=== PATIENT | female | born 1945 | race Caucasian/White ===

== ENCOUNTER → 2019-05-11 15:24 | Outpatient (CLI) | payer MEDICARE, OTHER, SELFPAY ==
--- NOTE | 2019-05-11 15:30 | DI.MRI.S_ITS ---
PROCEDURE: MR LUMBAR SPINE WO CON INDICATIONS: Radiculopathy, lumbosacral region TECHNIQUE: Noncontrast sagittal T1 spin echo and T2 fast echo, sagittal STIR, axial T1 and T2 fast spin echo through the lumbar spine. In cases with scoliosis, additional coronal T2 fast spin echo may be performed. COMPARISON: None. FINDINGS: Image quality: Excellent. Alignment and Curvature: There is mild levoscoliosis. Grade 1 anterolisthesis at L2-L3 and L3-L4. Bone Marrow: Degenerative endplate signal changes are present. No acute vertebral body compression fractures. Spinal Cord: Conus medullaris terminates at the L1-L2 level. Visualized cord demonstrates normal signal and size. Paraspinous Soft Tissues: No paravertebral masses. T12-L1: Mild loss of disc height and disc desiccation. There is diffuse posterior disc bulge and disc osteophyte complex. Mild bilateral facet arthropathy and hypertrophy of ligamentum flavum. The central canal is mildly narrowed. Mild foraminal stenosis bilaterally. No definitive nerve root impingement. L1-L2: Preserved disc height. Mild disc desiccation. There is diffuse posterior disc bulge and disc osteophyte complex. Moderate bilateral facet arthropathy and hypertrophy of ligamentum flavum. The central canal is mildly narrowed. Moderate right and mild left foraminal stenosis. No definitive nerve root impingement. L2-L3: Mild loss of disc height and disc desiccation. There is diffuse posterior disc bulge and posterior central disc protrusion. Moderate bilateral facet arthropathy and hypertrophy of ligamentum flavum. The central canal is severely narrowed. Moderate right and mild left foraminal stenosis. Likely nerve root impingement. L3-L4: [id number] loss of disc height and disc desiccation. There is diffuse posterior disc bulge and disc osteophyte complex. Moderate bilateral facet arthropathy. The central canal is severely narrowed. Severe right and mild left foraminal stenosis. Likely root impingement. L4-L5: Moderate loss of disc height and disc desiccation. There is diffuse posterior disc bulge and disc osteophyte complex. Moderate left and mild right facet arthropathy. The central canal is patent. Moderate left and mild right foraminal stenosis. No definitive nerve root impingement. L5-S1: Severe loss of disc height and disc desiccation. There is diffuse posterior disc bulge and disc osteophyte complex. Mild bilateral facet arthropathy. The central canal is patent. Moderate to severe bilateral foraminal stenosis. No definitive nerve root impingement. IMPRESSION: 1. Multilevel degenerative disc disease and facet arthropathy as described. 2. Severe central canal stenosis at L2-L3 and L3-L4. 3. Multilevel foraminal stenosis as described. Dictated by: Stevan Corbin M.D. on 05/11/2019 at 17:11 Approved by: Stevan Corbin M.D. on 05/11/2019 at 17:48
== END ==
PROVIDERS: Visit Provider Physical Medicine & Rehabilitation Pain Medicine
DX: M54.17 Radiculopathy, lumbosacral region (principal); M48.061 Spinal stenosis, lumbar region without neurogenic claudication; M47.816 Spondylosis without myelopathy or radiculopathy, lumbar region
CPT/HCPCS: 72148

== ENCOUNTER → 2019-08-25 10:11 | Outpatient (CLI) | payer MEDICARE, OTHER, SELFPAY ==
[2019-08-25 11:20] LABS: Appearance Urine UA CLEAR; Bilirubin Urine UA NEGATIVE (NEGATIVE); Color Urine UA YELLOW; Glucose Urine UA NEGATIVE (Negative); Ketones Urine UA NEGATIVE (NEGATIVE); Leukocyte Esterase Urine UA TRACE (NEGATIVE); Nitrite Urine UA NEGATIVE (Negative); Occult Blood Urine UA NEGATIVE (Negative); Protein Urine UA NEGATIVE (Negative); Specific Gravity Urine UA 1.015 (1.000-1.035); Urobilinogen Urine UA 0.2 E.U./dL (0.2)
[2019-08-25 11:23] LABS: Add Manual Diff / Slide Review NO; Basophils Absolute Auto 0 /uL (0-100); Basophils Percent Auto 0.5 % (0-2); Eosinophils Absolute Auto 100 /uL (0-450); Eosinophils Percent Auto 2.1 % (2-4); Hematocrit 41.3 % (36-46); Hemoglobin 14.1 g/dL (12.0-16.0); Lymphocytes Absolute Auto 1800 /uL (1100-4500); Lymphocytes Percent Auto 35.9 % (25-40); Mean Corpuscular HGB Conc 34.2 % (30-36); Mean Corpuscular Hemoglobin 33.6 PG (26-34); Mean Corpuscular Volume 98.5 fL (80-100); Monocytes Absolute Auto 300 /uL (0-900); Monocytes Percent Auto 6.2 % (3-14); Neutrophils Absolute Auto 2700 /uL (1500-7000); Neutrophils Percent Auto 55.3 % (50-75); Platelet Count 158 X10^3/uL (150-400); Red Blood Cell Count 4.19 X10^6/uL (4.0-5.2); Red Cell Distribution Width 12.8 % (11.6-14.8); White Blood Cell Count 4.9 X10^3/uL (4.5-11.0)
[2019-08-25 11:31] LABS: BUN Creatinine Ratio 23.8 (6-22); Blood Urea Nitrogen 19 mg/dL (7-17); Calcium 9.6 mg/dL (8.4-10.2); Carbon Dioxide 27 mmol/L (22-32); Chloride 104 mmol/L (98-107); Estimated Glomerular Filt Rate > 60.0 mL/min (>60); Glucose 98 mg/dL (80-110); HEMOLYSIS < 15 (0-50); Potassium 4.2 mmol/L (3.4-5.1); Sodium 140 mmol/L (137-145)
[2019-08-25 11:45] LABS: pH Urine UA 6.5 (4.5-8.0)
[2019-08-25 11:46] LABS: Bacteria Urine Many (>30); RBC Urine 0-1/HPF (0-5/HPF); Squamous Epithelial Cell Urine 1-5 /HPF (0-5/HPF); WBC Urine 5-10/HPF (0-5/HPF)
[2019-08-25 11:47] LABS: Hemoglobin A1C% w Est Avg Glu 4.9 % (4.0-6.0)
== END ==
PROVIDERS: Visit Provider Orthopaedic Surgery
DX: Z01.818 Encounter for other preprocedural examination (principal); Z01.812 Encounter for preprocedural laboratory examination; N39.9 Disorder of urinary system, unspecified; Z13.1 Encounter for screening for diabetes mellitus; R73.9 Hyperglycemia, unspecified
CPT/HCPCS: 36415; 80048; 81001; 83036; 85025; 93005; 93010

== ENCOUNTER 2019-10-19 05:52 | Observation (INO) | payer MEDICARE, OTHER, SELFPAY ==
[2019-10-05 08:47] VITALS: BMI 36.8
[2019-10-19] VITALS (17 sets, daily range): BP systolic 128–159; BP diastolic 55–89; PULSE 61–84; RESP 8–18; TEMP 36.1–36.9; O2SAT 91–100; BMI 33.7
--- NOTE | 2019-10-19 | DI.RAD.S_ITS ---
PROCEDURE: XR PELVIS 1-2V INDICATIONS: INTRA OPERATIVE RIGHT HIP TECHNIQUE: Intra-operative view of the pelvis and hip acquired. COMPARISON: None. FINDINGS: Bones: Intraoperative devices prior to placement of arthroplasty prostheses are in expected positions. No fractures or suspicious bony lesions. Soft tissues: Overlying surgical retractors are present, along with other intraoperative changes. IMPRESSION: Normal intraoperative examination. Dictated by: Vinny Muir M.D. on 10/19/2019 at 8:38 Approved by: Vinny Muir M.D. on 10/19/2019 at 8:39
--- NOTE | 2019-10-19 06:00 | DI.RAD.S_ITS ---
PROCEDURE: XR HIP W PEL IF DONE RT 2V INDICATIONS: post op TECHNIQUE: AP pelvis and lateral view of the right hip acquired. COMPARISON: None. FINDINGS: Bones: Patient is status post right hip arthroplasty, with hardware components in expected positions. The hip joint appears congruent. The visualized bony structures appear intact. Soft tissues: Overlying postoperative changes are noted. No suspicious soft tissue densities. IMPRESSION: Expected postoperative appearance Dictated by: Yury Wong M.D. on 10/19/2019 at 13:03 Approved by: Yury Wong M.D. on 10/19/2019 at 13:03
[2019-10-19] MEDS: CELECOXIB 200 MG CAPSULE PO (07:00)
[2019-10-19] MEDS: PREGABALIN 75 MG CAPSULE PO (07:00)
[2019-10-19] MEDS: ACETAMINOPHEN 325 MG TABLET 975 MG PO (07:01)
[2019-10-19] MEDS: VANCOMYCIN 1,000 MG/200 ML PIGGYBACK 200 MG IV (07:13)
[2019-10-19] MEDS: LACTATED RINGERS 1,000 ML 42 ML IV (07:13)
--- NOTE | 2019-10-19 07:45 | PM.PREOP ---
Pre-operative Note Interval Note History & Physical reviewed/Exam performed by Physician: Yes Changes to H&P: No
--- NOTE | 2019-10-19 07:45 | PM.OP.1 ---
Operative Date/Time/Diagnoses Date of procedure: 10/19/19 Time of procedure: 07:59 Pre-op diagnosis: right hip OA Post-op diagnosis: same Procedure & Clinicians Procedure: Right total hip arthroplasty Same procedure as scheduled: Yes Indications: The patient has had progressively worsening right hip pain with radiographic changes consistent with arthritis. Non-operative management has failed and the patient has requested total hip replacement. The risks, benefits and alternatives to surgery were discussed with the patient prior to proceeding. Risks discussed included, but were not limited to, failure to relieve pain, leg length discrepancy, dislocation, stiffness, infection, nerve damage, deep venous thrombosis, pulmonary embolism, stroke, coma, heart attack, permanent paralysis and , as well as the potential need for eventual revision of the prosthetic. Surgeon: Radhika Bassett Christian Counselor: Zachary Lin Anesthesia Type: General Operative Notes Findings: Severe right hip OA, good stability Closure Type: primary Specimen(s): none sent Prosthetic devices, grafts, tissues, transplants, or devices: Bassett and Nephew 54 mm R3 cup, size 10 anthology standard offset, 36 by -3 femoral head Applied: drain(s) Estimated Blood Loss (mL): 250 Blood products transfused: none Procedure in detail: The patient was seen in the pre-operative area, where the patient identified the right hip as the operative site and this was marked with my initials. The patient received pre-operative antibiotics and was taken to the operating room and placed on the operative table in the left lateral decubitus position after satisfactory anesthesia. A education analyst out was performed. The right leg was prepared from the ankle to the iliac crest with ChloroPrep in the usual fashion and draped through sterile drapes. The hip was approached through an approximately 20 cm incision centered over the greater trochanter and curving gently posteriorly as it went proximally. This was carried sharply to the fascia marisa, which was divided and retracted with a self retaining retractor. The trochanteric bursa was excised with care being taken to avoid the sciatic nerve, which was identified and protected throughout the case. The short external rotators were incised and the capsulomuscular flap was raised and tagged for later repair. The hip was dislocated, and a femoral neck osteotomy performed approximately 15 mm above the lesser trochanter. Retractors were placed around the femur. The canal was opened with a box cutting osteotome, followed by a T handled reamer and a lateralizing reamer. The chili pepper broach was then used, followed by sequential broaching until there was good stability of the broach in the femur. Retractors were placed to expose the acetabulum. The labrum and central soft tissues were removed. Reaming was performed initially going up in 2 mm increments, then 1 mm increments until good bite was obtained with an odd sized reamer. There was moderate osteophytes circumferentially around the cup and these were meticulously removed with a osteotome. The cup 1 mm larger than the last reamer was then inserted using the appropriate anteversion guides. A trial neutral liner was placed. The broach was placed in the canal. A trial head and neck were then placed and the hip relocated and checked for leg length and stability. An intraoperative film confirmed the component position and no evidence of fracture. The patient was stable in the position of sleep, of squatting, and could be put through a range of motion with 45 degrees internal rotation without dislocation. At 90 degrees flexion, internal rotation to 70? was possible before dislocation. This was felt to be satisfactory and the appropriate components were opened, and the trials were removed. The acetabular liner was impacted into position. The final stem was then impacted into the prepared femoral canal. A brief Betadine soak was performed while trialing with head options. The hip was meticulously irrigated with normal saline. Finally the femoral head was impacted onto the stem. The acetabulum was cleared of all material and the hip relocated one final time. The capsulomuscular flap was then repaired to the greater trochanter though an awl hole using the tag sutures. The short external rotators were repaired with a nonabsorbable suture. A deep drain was placed and brought out anteriorly. The fascia marisa was closed with Vicryl. The subcutaneous layer was closed with barbed sutures and SteriStrips. An Aquacel Ag dressing was applied and the patient was taken to recovery having tolerated the procedure well. Complications: none Post-operative Condition: stable Disposition: Acute Care Plan for aftercare: Weight-bearing as tolerated on the right lower extremity. The patient will be maintained on a standard total hip replacement protocol with weight bearing as tolerated and posterior hip precautions. The patient will receive Aspirin and sequential compression devices for DVT prophylaxis. The patient will be discharged home when safe for the home environment. The patient has multiple medical problems and relatively poor mobility and I anticipate a 2 night hospital stay.
[2019-10-19] MEDS: CEFAZOLIN 2 GM/100 ML FROZ.PIGGY IV ×2 (07:50→16:07)
[2019-10-19] MEDS: TRANEXAMIC ACID 1,000 MG VIAL 1000 MG INJ ×2 (08:29→09:30)
[2019-10-19] MEDS: BUPIVACAINE 0.25% W/ EPI (PF) 10 ML VIAL 60 ML INJ (08:29)
[2019-10-19] MEDS: BUPIVACAINE LIPOSOME 266 MG/20 ML VIAL INJ (08:30)
[2019-10-19] MEDS: SODIUM CHLORIDE IRRIG SOLUTION 250 ML, EPINEPHrine 1 MG IRR (08:32)
--- NOTE | 2019-10-19 08:34 | SUR.OPER ---
Lateral on padded OR bed. Gel axillary roll. Arms secured on padded armboard with pillow supporting top arm. Padded hip positioner braces x4 - anterior and posterior chest and pelvis. Additional gel pad used anterior pelvis. Gel pad under bottom leg from knee to foot and secured with tape over sheet.
[2019-10-19] MEDS: HYDROMORPHONE 2 MG INJ IV (10:49)
[2019-10-19] MEDS: hydrOXYzine 50 MG/ML INJ 25 MG IM (10:58)
--- NOTE | 2019-10-19 11:33 | PC.NURSE ---
Day shift: Pt on unit at approx 1130 from PACU. A&Ox4. Oriented to room and call light. Call light in reach. PPP and CMS ok. Jason-vac patent. Parvin is CDI rt hip. Tolerating SCD's. Agrees to not get OOB w/o help from staff.
[2019-10-19] MEDS: LACTATED RINGERS 1,000 ML 125 ML IV (11:48)
[2019-10-19] MEDS: IBUPROFEN 400 MG TABLET PO ×3 (13:18→21:22)
[2019-10-19] MEDS: ACETAMINOPHEN 325 MG TABLET 650 MG PO ×2 (13:57→21:22)
--- NOTE | 2019-10-19 15:14 | PT.IIE ---
Current Diagnoses Unilateral primary osteoarthritis, right hip (10/19/19) Surgery Performed Operation Date: 10/19/19 07:45 Actual Procedures p Total Hip Arthroplasty(Right) - Radhika Bassett MD Surgical History (Last Updated 10/05/19 @ 09:18 by Yelitza Muller, RN) History of (Acute) History of surgery (Acute) Hx of appendectomy (Acute) Hx of bariatric surgery (Acute ~2014) Hx of tonsillectomy (Acute) S/P epidural steroid injection (Acute) Medical History (Last Updated 10/05/19 @ 09:18 by Yelitza Muller RN) Acid reflux (Acute) Chronic low back pain (Acute) Easy bruisability (Acute) Granuloma annulare (Acute) Heart murmur (Acute) Mouth problem (Acute 09/2019) Osteoarthritis (Acute) Pneumonia (Acute) Sleep apnea (Acute) Physical Therapy Inpatient Evaluation/Re-Eval M1 PT/OT-IP Prior Functional Status Start: 10/19/19 12:04 Freq: NEEDED Status: Active Protocol: Document 10/19/19 14:50 AW (Rec: 10/19/19 15:14 AW [id number]) Medical Review Prior Functional Status Medical History Reviewed Yes Communication WNL Mobility and Gait For the past 4 months, pt has used a SPC for parking lot distances and for stairs but was independent without AD at home. Activities of Daily Living and IADL's Pt states her helped her with shoes and socks, but she was otherwise independent with dressing, bathing, toileting. 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 Level entrance through garage. From data entry analyst - 5 steps up to main level with L rail ascending. 10 steps up to top level which has a stair lift installed. Home Environment High Toilet,Walk in Shower Home Equipment Front Wheel Walker,Straight Cane,Shower Seat without Backrest,Hand Held Shower,Lift Recliner,Hospital Bed,Grab Bars In Shower Additional Social History Comment Pt lives with her and adult son who are both able and available to assist as much as needed. Her bed is tall with a step/platform she uses to exit and enter. M2 PT-IP Current Condition Start: 10/19/19 12:04 Freq: NEEDED Status: Active Protocol: Document 10/19/19 14:50 AW (Rec: 10/19/19 15:14 AW [id number]) Physical Therapy Current Condition Current Condition Evaluation Date 10/19/19 Treatment Diagnosis s/p R GEOVANNY with posterior approach, difficulty in walking Onset Date 10/19/19 Precautions Posterior Hip Precautions No Hip Flexion > 90 degrees,No Hip Internal Rotation,No Hip Adduction Weight Bearing Status Weight Bearing Status Weight Bear as Tolerated M3 PT-IP Subjective Start: 10/19/19 12:04 Freq: NEEDED Status: Active Protocol: Document 10/19/19 14:50 AW (Rec: 10/19/19 15:14 AW [id number]) Subjective Physical Therapy Visit Type Type Initial Evaluation Visit Start Time 14:02 Visit Stop Time 14:48 Total Visit Minutes 46 Number of MANAGER MULTIMEDIA Visits 0 Physical Therapy Visit Comments Patient Comments Pt would like to use the [facility] Patient Goals Pt hopes to be able to return to [facility] next summer with decreased hip pain. In the short term, she wishes to return home with family assist . Therapy Pain Assessment Pain When Pain Assessed During Mobility Pain Present Pain Present Pain Reported Location Right Hip Intensity 5 Scale Used 5/10 at rest; unchanged with mobility Pain Management Techniques Apply Cold,Distraction,Re- positioning,Timing of Activity with Medications M4 PT-IP Mobility and Gait Start: 10/19/19 12:04 Freq: NEEDED Status: Active Protocol: Document 10/19/19 14:50 AW (Rec: 10/19/19 15:14 AW [id number]) PT-Bed Mobility Assessment Supine to Sit Supine to Sit Minimal Assistance,1 Person Assistance,Head of Bed Elevated,Bedrails Sit to Supine Sit to Supine Minimal Assistance,1 Person Assistance,Head of Bed Elevated Scooting Scooting to Edge of Bed Standby Assistance Scooting Up and Down in Bed Standby Assistance PT-Transfer Assessment Sit to and From Stand Sit to and from Stand Minimal Assistance,1 Person Assistance,Use of Upper Extremities Equipment Transfer Assistive Device Gait Belt,Front Wheeled Walker Orthotic/Prosthetic Devices or Brace: No Transfers Transfer Destination Bed,Bedside Commode Transfer Technique Stand Step Pivot Transfer Ability Level of Assist Minimal Assistance,1 Person Assistance,Use of Upper Extremities Comments Mobility Comments Pt completed supine to sit with min assist to support the operative leg, exiting to the right. With min A x 1, she stood with FWW and transferred to [facility]. She voided and completed pericare with min A x 1 to stand, then transferred back to bed, scooting toward [facility] and completing sit to supine with min A to lift her right leg into the bed. She was repositioned in bed with call light and all needs within reach, bed alarm on for safety. Gait Assessment Gait Gait Assistance Required: Minimum Assistance,1 Person Assist Distance (Feet) 2 Able to Maintain Weight Bearing Status Yes During Gait Assistive Devices Assistive Device Gait Belt,Front Wheeled Walker Orthotic/Prosthetic Devices or Brace: No Gait Deviations General Gait Pattern Antalgic,Decreased Stride Length,Decreased Feet Clearance,Flexed Trunk,Step-to Gait Factors Limiting Gait Function Factors Limiting Gait Function Decreased Strength,Pain,Poor Balance Comments Gait Comments See mobility comments Stair Climbing Assessment Comments Stair Climbing Comments Not assessed. PT-Balance Assessment Sitting Balance and Reactions Static Sitting Balance Ability Good Dynamic Sitting Balance Ability Good Standing Balance and Reactions Static Standing Balance Ability Good Dynamic Standing Balance Ability Good Device Used FWW M5 PT-IP Objective Assessments Start: 10/19/19 12:04 Freq: NEEDED Status: Active Protocol: Document 10/19/19 14:50 AW (Rec: 10/19/19 15:14 AW [id number]) Orientation Orientation/Cognition Level of Alertness Alert Orientation Name,Day of Week,Place, Situation Language Function Ability No Deficits Noted Safety Awareness Understands Safety Issues Memory Description No Deficits Noted Gross Range of Motion Upper Extremity ROM Assessment Within Functional Limits Lower Extremity ROM Assessment Right Impaired Strength Upper Extremity Strength Assessment Within Functional Limits Lower Extremity Strength Assessment Right Impaired Comments Strength Comments L LE grossly 4+/5 Coordination Assessment Gross Coordination Gross Coordination WNL Sensation Assessment Sensation Gross Sensation WNL Comments Sensation Comments Chronically numb left great toe Muscle Tone Muscle Tone WNL Yes M6 PT-IP Treatment Start: 10/19/19 12:04 Freq: NEEDED Status: Active Protocol: Document 10/19/19 14:50 AW (Rec: 10/19/19 15:14 AW [id number]) Physical Therapy Treatment Exercises Exercises Ankle Pumps,Gluteal Sets,Quad Sets,Heel Slides Education Education Provided Precautions,Weight Bearing Status,Post-Op Packet,Safety Other Treatments Other Treatment Performed Provided education on role of PT, plan of care, posterior hip precautions, weightbearing status, and safe use of FWW. M7 PT-IP Assessment and Plan Start: 10/19/19 12:04 Freq: NEEDED Status: Active Protocol: Document 10/19/19 14:50 AW (Rec: 10/19/19 15:14 AW [id number]) PT Summary Assessment and Plan Potential Rehabilitation Potential Excellent Status of Condition at Evaluation Evolving Summary Impairments Pain,ROM,Strength,Balance,Bed Mobility,Transfers,Gait Assessment Summary Marilia is a 73 yo woman seen for PT evaluation on POD0 following R GEOVANNY with posterior approach. At baseline, she was independent with household ambulation and used a SPC for parking lot distances and stairs. On evaluation, she required min assist x 1 for most mobility and showed good effort with all activities. PT anticipates she will meet the functional goals of this plan of care and be safe for discharge to home with family assist and outpatient PT. Goals Bed Mobility Goal Standby Assistance Transfer Goal Standby Assistance,Front Wheeled Walker Gait Goal Standby Assistance,Front Wheel Walker Gait Distance 150 Other Goals - up/down 5 stairs with left rail ascending SBA - up/down one platform step for access to tall bed Days to Meet Goals 2 Frequency of Treatment Frequency Of Treatment Twice a Day Treatment Plan Physical Therapy Treatment Plan Bed Mobility Training,Transfer Training,Gait Training, Therapeutic Exercise,Balance Retraining,Post Op Education, Discharge Planning,Hot or Cold Pack,Neuromuscular Re-ed, Coordination Retraining,Manual Therapy Other Recommendations and Next Treatment review posterior precautions Focus and ther ex; gait; stairs if able Recommendations To Nursing Amount of Assist Needed 1 Person Assist Discharge Recommendations PT Discharge Recommendations Home with Assistance, Outpatient PT
[2019-10-19] MEDS: ASPIRIN EC 81 MG TABLET PO (21:23)
[2019-10-19] MEDS: DOCUSATE 100 MG CAPSULE PO (21:23)
[2019-10-19] MEDS: TRAMADOL 50 MG TABLET PO (21:23)
--- NOTE | 2019-10-19 23:01 | PC.NURSE ---
Evening Shift Note- Patient alert and oriented and able to make needs known to staff. Patient pleasent, calm, and cooperative with care. Aquacell dressing c/d/i. ice pack in place. safety measures in place. bed alarm activated. call corrales and phone within reach. will continue to monitor.
[2019-10-20] MEDS: CEFAZOLIN 2 GM/100 ML FROZ.PIGGY IV (00:11)
[2019-10-20] MEDS: IBUPROFEN 400 MG TABLET PO ×6 (00:12→22:19)
[2019-10-20 03:52] VITALS: BP 146/72; PULSE 62; RESP 19; TEMP 36.2; O2SAT 95
[2019-10-20] MEDS: PANTOPRAZOLE 40 MG TABLET PO (05:12)
[2019-10-20] MEDS: LACTATED RINGERS 1,000 ML 125 ML IV (05:46)
[2019-10-20 05:54] LABS: Hematocrit 32.2 % (36-46); Hemoglobin 11.1 g/dL (12.0-16.0)
[2019-10-20 09:13] VITALS: BP 135/70; PULSE 76; RESP 16; TEMP 35.8; O2SAT 99
[2019-10-20] MEDS: FERROUS SULFATE 325 MG TABLET PO (09:27)
[2019-10-20] MEDS: DOCUSATE 100 MG CAPSULE PO ×2 (09:27→22:20)
[2019-10-20] MEDS: PRENATAL VIT,CALC/IRON/FOLIC 1 TABLET 1 TAB PO (09:27)
[2019-10-20] MEDS: ASPIRIN EC 81 MG TABLET PO ×2 (09:27→22:19)
[2019-10-20] MEDS: CYANOCOBALAMIN (VITAMIN B-12) 500 MCG TABLET 1000 MCG PO (09:28)
[2019-10-20] MEDS: ACETAMINOPHEN 325 MG TABLET 650 MG PO ×3 (09:28→22:19)
--- NOTE | 2019-10-20 09:41 | PM.PNPO.1 ---
Subjective Subjective Date Patient Seen: 10/20/19 Time Patient Seen: 08:30 Interval history: Post op day 1 s/p total right hip arthroplasty (posterior) with Dr. Bassett. Patient is doing well, complains of pain in right hip. Pain well managed with tylenol, ibuprofen and tramadol PRN. Patient wishes to minimize narcotic use. Mobilized with PT. Voiding without difficulty or assistance. Patient denies fever, chills, chest pain, shortness of breath. Exam Vital Signs (past 8 hours): - 10/20/19 03:52 Temperature 97.2 F L Pulse Rate 62 Respiratory Rate 19 Blood Pressure 146/72 H Pulse Oximetry 95 Oxygen Delivery Method Nasal Cannula Oxygen Flow Rate 0 Narrative Exam Narrative: 73 year old female sitting upright in chair eating breakfast, in no apparent distress. A&Ox3. Dressing CDI, hemovacc in place. Able to actively dorsiflex/plantar flex. Sensory function grossly intact to light touch in LE bl. Dorsalis pedis 2+ bl. Capillary refill <2sec LE bl. Objective Labs Result Diagrams: 10/20/19 05:27 Labs: Laboratory Results - last 24 hr 10/20/19 05:27 Hgb 11.1 L Hct 32.2 L Assessment & Plan Post-op Postoperative Procedures: Procedures Operation Date: 10/19/19 07:45 Actual Procedures Side Surgeon p Total Hip Arthroplasty Right Radhika Bassett MD Postoperative plan: discharge Postoperative plan narrative: Plan on discharge today pending PT clearance Continue current pain medication management Continue SCDs Discontinue hemovac prior to discharge Time Spent With Patient Time with patient: less than 15 minutes Quality VTE Deep Vein Thrombosis/Pulmonary Embolism Present on Admission: No
--- NOTE | 2019-10-20 10:56 | CM.DANOTE ---
DCP Assessment: EMR reviewed: patient is a 73 yr old female who was admitted for Rt GEOVANNY preformed by Dr. Bassett. PCP is Dr. Palma. CM/RN met with patient at the bedside and explained role. Patient was alert and oriented x3 at time of CM visit. Paitent is I at baseline with all ADL's including driving. patient has FWW, bath bench and grab bars at home . Patient currently lives in a 3 story home with her . PT evaluation done and cleared to go home with assistance from family as long as patient passes steps with PT later this afternoon. I: Medicare and for life. Plan: D/C home with after PT clears stairs for patient. No identified D/c Planning needs noted at this time, CM will follow up after PT does stair evaluation with patient to determine if any new D/C planning needs have arose. Jalyn Bassett RN Discharge Planning/Care Management CM Discharge Assessment Start: 10/20/19 10:53 Freq: Status: Active Protocol: Document 10/20/19 10:53 HS (Rec: 10/20/19 10:56 [id number]) Discharge Planning Assessment Assigned Medical Record Librarians Teacher Jalyn Bassett RN DPOA/Assigned Designee Name Simone Solomon () Contact Information [phone] Advance Directives? No History Provided By Patient Has Patient been admitted in last 30 No days? Prior Living Arrangements House Household Members spouse,children Type of transporation used prior to Drives own vehicle admit Independent with ADL's Yes Is patient alert and oriented? Yes Caregiver for Another No DME Already Rented / Owned Bath Bench,Wheelchair,Elevated Toilet Seat,FWW / Walker,Cane Patient/Family Preference OP PT Therapy Barriers to Discharge Yes Comment patient has a 3 story home and needs to be cleared for steps with PT. Discharge Plan Home Transportation Arrangement Patients Simone will bring her home Referrals Initiated None needed Whiteboard Updated in Patient Room with Yes name and ext. 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 Machine Required No Height 165.1 cm Weight 100.244 kg Body Mass Index (BMI) 36.8 Hearing Ability Normal Visual Assist Glasses Dentition Type Teeth, Natural Present Barriers to Learning None Other Aids No Hx Anesthesia Reactions No Hx Family Anesthesia Reaction No Hx Malignant Hyperthermia No Hx Blood Transfusions No Anesthesia Review Requested No alcohol intake former Smoking Status Former smoker how long ago did patient quit smoking Quit 1983 Substance Use Type does not use Pain Present Pain Reported Musculoskeletal Symptoms Abnormal Gait,Back Pain, Difficulty Walking,Joint Pain, Muscle Cramps History of Falling (Recent or History of Yes ) Patient is completely paralyzed or No completely immobile Prosthesis or Orthotic Device Cane,Front Wheel Walker Mental Status Oriented to own ability Is patient on oxygen? No Does patient have MAXWELL/SOB No Hx Sleep Apnea Yes: Resolved after gastric bypass Currently Taking a Beta Paresh No Can You Climb a Flight of Stairs Without Yes SOB Hx Chest Pain No Hx SOB No Hx Syncope or Dizziness No Anti-Coagulant Therapy No Has a Supervisor Shuttle Veneering No Cardiac Testing No Hx Pacemaker/ICD No Pacemaker Rep Required? No Cardiac Clearance Received Not Applicable Diet Type At Home Regular dysphagia No Bladder Pattern Nocturia Urinary Catheter Present No Hx Urinary Self Catheterization No Diabetes No HgbA1C 4.9 Date 08/25/19 Patient No Lactating No Hx Drug Resistant Organism No Presence of External or Internal Medical No Devices Have you traveled outside the [facility] in the last 30 days? Marital Status Lives With spouse,children Prior Living Arrangements House Number of Floors (Floors) 3 or More Floors Support System Child/Children,Spouse Does the Patient Have Assistance After Yes Surgery Patient Discharge Plan Description Return Home Comment Pt advised overnight length of stay per surgeon Feels Safe in Current Environment Yes Been Physically Hurt or Threatened By a No Person in Current Environment Do you have thoughts of harming yourself None or others? Are you currently considering suicide? No Do you have a plan to hurt yourself or No Plan others? Do You Have Any Spiritual Beliefs That No May Affect Your HC Choices? Do You Have Any Cultural Practices That No May Affect Your HC Choices? Spiritual Referral None Comment Anabaptism Who Can We Speak to About Patient's Care Family, friends Identifying Code for Release of Patient Declines to issue Information Health Care Proxy/Next of Kin Simone () Health Care Proxy Emergency Contact Name Simone () Emergency Contact Advance Directives? No Power of Metal Coater No PAC Instructions Do not shave/clip surgical site,Durable medical equipment ,Medications to take/avoid, Nasal antibiotic,No ETOH/ petroleum product on skin DOS, NPO,Post-op transportation,Pre -surgical wash,Sturdy shoes/ comfortable clothes,Do not bring valuables and remove jewelry
[2019-10-20 11:44] VITALS: BP 112/53; PULSE 63; RESP 16; TEMP 37.3; O2SAT 100
[2019-10-20 11:45] VITALS: BP 112/53; PULSE 63; RESP 16; TEMP 37.3; O2SAT 100
[2019-10-20] MEDS: TRAMADOL 50 MG TABLET PO (13:03)
--- NOTE | 2019-10-20 14:27 | PT.IPTN ---
Current Diagnoses Unilateral primary osteoarthritis, right hip (10/19/19) Surgery Performed Operation Date: 10/19/19 07:45 Actual Procedures p Total Hip Arthroplasty(Right) - Radhika Bassett MD Physical Therapy Treatment Note M2 PT-IP Current Condition Start: 10/19/19 12:04 Freq: NEEDED Status: Active Protocol: Document 10/19/19 14:50 AW (Rec: 10/19/19 15:14 AW [id number]) Physical Therapy Current Condition Current Condition Evaluation Date 10/19/19 Treatment Diagnosis s/p R GEOVANNY with posterior approach, difficulty in walking Onset Date 10/19/19 Precautions Posterior Hip Precautions No Hip Flexion > 90 degrees,No Hip Internal Rotation,No Hip Adduction Weight Bearing Status Weight Bearing Status Weight Bear as Tolerated M3 PT-IP Subjective Start: 10/19/19 12:04 Freq: NEEDED Status: Active Protocol: Document 10/20/19 09:25 LJ (Rec: 10/20/19 14:27 LJ [id number]) Subjective Physical Therapy Visit Type Type Treatment Note Visit Start Time 09:25 Visit Stop Time 09:47 Total Visit Minutes 22 Number of COWLMAN Visits 1 Physical Therapy Visit Comments Patient Comments States she has been up several times with nursing this morning Patient Goals Pt hopes to be able to return to [place] next summer with decreased hip pain. In the short term, she wishes to return home with family assist . Therapy Pain Assessment Pain When Pain Assessed During Mobility Pain Present Pain Present Pain Reported M4 PT-IP Mobility and Gait Start: 10/19/19 12:04 Freq: NEEDED Status: Active Protocol: Document 10/20/19 09:25 LJ (Rec: 10/20/19 14:27 LJ [id number]) PT-Bed Mobility Assessment Rolling Type of Rolling Roll to Left Supine to Sit Supine to Sit Minimal Assistance,Bedrails Sit to Supine Sit to Supine Contact Guard Assistance,1 Person Assistance,Bedrails Scooting Scooting to Edge of Bed Standby Assistance Scooting Up and Down in Bed Standby Assistance PT-Transfer Assessment Sit to and From Stand Sit to and from Stand Contact Guard Assistance,1 Person Assistance,Use of Upper Extremities Equipment Transfer Assistive Device Gait Belt,Front Wheeled Walker Orthotic/Prosthetic Devices or Brace: No Transfers Transfer Destination Chair Transfer Ability Level of Assist Contact Guard Assistance,1 Person Assistance,Use of Upper Extremities Comments Mobility Comments pt completed supine to sit after logroll to left to simulate conditions at home. She required Ondina for moving operated LE to side of bed. She was able to position herself at the side of bed to transfer sit>stand. Completed sit>stand with SBA and cues for standing tall. Transfered to chair SBA and cues for LE placement after ambulation in room. She stood at sink to brush her teeth without leaning on counter or supporting herself with the FWW Gait Assessment Gait Gait Assistance Required: Standby Assistance,Contact Guard Assist Distance (Feet) 30 Able to Maintain Weight Bearing Status Yes During Gait Assistive Devices Assistive Device Gait Belt,Front Wheeled Walker Orthotic/Prosthetic Devices or Brace: No Gait Deviations General Gait Pattern Antalgic,Decreased Stride Length,Decreased Feet Clearance,Flexed Trunk,Step-to Gait Factors Limiting Gait Function Factors Limiting Gait Function Decreased Strength,Pain,Poor Balance Comments Gait Comments Pt using FWW properly with cues for posture. Ambulated around the room several times and stood independently at sink w/o support. Pt was able to maintain balance and weight bear on RLE with cues for bracing with core and using glute muscles to stabilize during standing and weight transfer during ambulation. Stair Climbing Assessment Comments Stair Climbing Comments Not assessed. M5 PT-IP Objective Assessments Start: 10/19/19 12:04 Freq: NEEDED Status: Active Protocol: Document 10/19/19 14:50 AW (Rec: 10/19/19 15:14 AW [id number]) Orientation Orientation/Cognition Level of Alertness Alert Orientation Name,Day of Week,Place, Situation Language Function Ability No Deficits Noted Safety Awareness Understands Safety Issues Memory Description No Deficits Noted Gross Range of Motion Upper Extremity ROM Assessment Within Functional Limits Lower Extremity ROM Assessment Right Impaired Strength Upper Extremity Strength Assessment Within Functional Limits Lower Extremity Strength Assessment Right Impaired Comments Strength Comments L LE grossly 4+/5 Coordination Assessment Gross Coordination Gross Coordination WNL Sensation Assessment Sensation Gross Sensation WNL Comments Sensation Comments Chronically numb left great toe Muscle Tone Muscle Tone WNL Yes M6 PT-IP Treatment Start: 10/19/19 12:04 Freq: NEEDED Status: Active Protocol: Document 10/20/19 09:25 LJ (Rec: 10/20/19 14:27 LJ [id number]) Physical Therapy Treatment Exercises Exercises Ankle Pumps,Gluteal Sets,Quad Sets,Heel Slides Education Education Provided Precautions,Weight Bearing Status,Safety M7 PT-IP Assessment and Plan Start: 10/19/19 12:04 Freq: NEEDED Status: Active Protocol: Document 10/20/19 09:25 CHARLES (Rec: 10/20/19 14:27 CHARLES [id number]) PT Summary Assessment and Plan Potential Rehabilitation Potential Excellent Status of Condition at Evaluation Evolving Summary Impairments Pain,ROM,Strength,Balance,Bed Mobility,Transfers,Gait Assessment Summary Pt is SBA to Ondina for operated LE during mobility and transfers. Able to maintain standing w/o assist or support to brush her teeth at sink. Pt is ambulating correctly with FWW and showed no LOB or fatigue. Pt sat in chair after session with all needs in reach. Goals Bed Mobility Goal Standby Assistance Transfer Goal Standby Assistance,Front Wheeled Walker Gait Goal Standby Assistance,Front Wheel Walker Gait Distance 150 Other Goals - up/down 5 stairs with left rail ascending SBA - up/down one platform step for access to tall bed Days to Meet Goals 2 Frequency of Treatment Frequency Of Treatment Twice a Day Treatment Plan Physical Therapy Treatment Plan Bed Mobility Training,Transfer Training,Gait Training, Therapeutic Exercise,Balance Retraining,Post Op Education, Discharge Planning,Hot or Cold Pack,Neuromuscular Re-ed, Coordination Retraining,Manual Therapy Other Recommendations and Next Treatment review posterior precautions Focus and ther ex; gait; stairs if able Recommendations To Nursing Amount of Assist Needed 1 Person Assist Discharge Recommendations PT Discharge Recommendations Home with Assistance, Outpatient PT
--- NOTE | 2019-10-20 15:48 | PT.IPTN ---
Current Diagnoses Unilateral primary osteoarthritis, right hip (10/19/19) Surgery Performed Operation Date: 10/19/19 07:45 Actual Procedures p Total Hip Arthroplasty(Right) - Radhika Bassett MD Physical Therapy Treatment Note M2 PT-IP Current Condition Start: 10/19/19 12:04 Freq: NEEDED Status: Active Protocol: Document 10/19/19 14:50 AW (Rec: 10/19/19 15:14 AW [id number]) Physical Therapy Current Condition Current Condition Evaluation Date 10/19/19 Treatment Diagnosis s/p R GEOVANNY with posterior approach, difficulty in walking Onset Date 10/19/19 Precautions Posterior Hip Precautions No Hip Flexion > 90 degrees,No Hip Internal Rotation,No Hip Adduction Weight Bearing Status Weight Bearing Status Weight Bear as Tolerated M3 PT-IP Subjective Start: 10/19/19 12:04 Freq: NEEDED Status: Active Protocol: Document 10/20/19 14:45 LJ (Rec: 10/20/19 15:48 LJ [id number]) Subjective Physical Therapy Visit Type Type Treatment Note Visit Start Time 14:45 Visit Stop Time 15:13 Total Visit Minutes 28 Number of REGIONAL FACILITIES MANAGER Visits 2 Physical Therapy Visit Comments Patient Comments Pt willing to trial stairs and ambulate in hallway. She reports having a sharp pain in the anterior hip. in room ready to assist in treatment. Patient Goals Pt hopes to be able to return to gardening next summer with decreased hip pain. In the short term, she wishes to return home with family assist . Therapy Pain Assessment Pain When Pain Assessed During Mobility Pain Present Pain Present Pain Reported M4 PT-IP Mobility and Gait Start: 10/19/19 12:04 Freq: NEEDED Status: Active Protocol: Document 10/20/19 14:45 LJ (Rec: 10/20/19 15:48 LJ [id number]) PT-Bed Mobility Assessment Rolling Type of Rolling Roll to Left Supine to Sit Supine to Sit Minimal Assistance,Bedrails Sit to Supine Sit to Supine Contact Guard Assistance,1 Person Assistance,Bedrails Scooting Scooting to Edge of Bed Standby Assistance Scooting Up and Down in Bed Standby Assistance PT-Transfer Assessment Sit to and From Stand Sit to and from Stand Contact Guard Assistance,1 Person Assistance,Use of Upper Extremities Equipment Transfer Assistive Device Gait Belt,Front Wheeled Walker Orthotic/Prosthetic Devices or Brace: No Transfers Transfer Destination Bed,Toilet,Wheelchair Transfer Ability Level of Assist Standby Assistance,Contact Guard Assistance,1 Person Assistance,Use of Upper Extremities Comments Mobility Comments Pt completed log roll SBA. assisted pt minimally with RLE moving leg to side of bed. Pt able to swing legs off bed and sit upright SBA. Pt stood SBA and ambulated to bathroom where she completed toileting with SBA. Pt returned to bed after ambulation and stairs SBA. Gait Assessment Gait Gait Assistance Required: Standby Assistance,Contact Guard Assist Distance (Feet) 200 Able to Maintain Weight Bearing Status Yes During Gait Assistive Devices Assistive Device Gait Belt,Front Wheeled Walker Orthotic/Prosthetic Devices or Brace: No Gait Deviations General Gait Pattern Antalgic,Decreased Stride Length,Decreased Feet Clearance,Flexed Trunk,Step-to Gait Factors Limiting Gait Function Factors Limiting Gait Function Decreased Strength,Pain,Poor Balance Comments Gait Comments Pt ambulated CGA-SBA with following with WC from room to stairs. Pt needed cues for posture and accepting weight on RLE during gait cycle. Stride length is nearly even with both LEs. Stair Climbing Assessment Evaluation Level of Assist On Stairs Contact Guard Assistance,1 Person Assistance Devices Stair Climbing Assistive Devices Left Railing Technique/Endurance Stair Climbing Direction Ascend and Descend Stair Climbing Technique Step to Step Number of Steps Climbed 3 Stair Climbing Set # Repetitions (reps) 2 Comments Stair Climbing Comments Pt trialed stairs with REGIONAL FACILITIES MANAGER first time and assist from second time. She needed assist in the form of putting hand on 's shoulder when descending stairs. Able to safely navigate x2 trials. M5 PT-IP Objective Assessments Start: 10/19/19 12:04 Freq: NEEDED Status: Active Protocol: Document 10/19/19 14:50 AW (Rec: 10/19/19 15:14 AW [id number]) Orientation Orientation/Cognition Level of Alertness Alert Orientation Name,Day of Week,Place, Situation Language Function Ability No Deficits Noted Safety Awareness Understands Safety Issues Memory Description No Deficits Noted Gross Range of Motion Upper Extremity ROM Assessment Within Functional Limits Lower Extremity ROM Assessment Right Impaired Strength Upper Extremity Strength Assessment Within Functional Limits Lower Extremity Strength Assessment Right Impaired Comments Strength Comments L LE grossly 4+/5 Coordination Assessment Gross Coordination Gross Coordination WNL Sensation Assessment Sensation Gross Sensation WNL Comments Sensation Comments Chronically numb left great toe Muscle Tone Muscle Tone WNL Yes M6 PT-IP Treatment Start: 10/19/19 12:04 Freq: NEEDED Status: Active Protocol: Document 10/20/19 14:45 LJ (Rec: 10/20/19 15:48 LJ [id number]) Physical Therapy Treatment Exercises Exercises Gluteal Sets,Quad Sets, Straight Leg Raises Education Education Provided Precautions,Weight Bearing Status,Safety Other Treatments Other Treatment Performed caregiver training with in regards to ambulation and stair navigation M7 PT-IP Assessment and Plan Start: 10/19/19 12:04 Freq: NEEDED Status: Active Protocol: Document 10/20/19 14:45 LJ (Rec: 10/20/19 15:48 LJ [id number]) PT Summary Assessment and Plan Potential Rehabilitation Potential Excellent Status of Condition at Evaluation Evolving Summary Impairments Pain,ROM,Strength,Balance,Bed Mobility,Transfers,Gait Assessment Summary Pt SBA to Ondina for all bed mobility and transfers. Still c/o anterior pain in RLE hip flexors. She is able to manage FWW adequately with cueing for posture and using core and glute muscles for ambulation and transfers. She is safe on stairs with Ondina for descent. Pt will require more ambulation and transfer training due to her inconsistency in eccentric control of RLE and slight impulsiveness when returning to bed. She has a tendency to throw her RLE across the bed rather than moving it intentionally and carefully Goals Bed Mobility Goal Standby Assistance Transfer Goal Standby Assistance,Front Wheeled Walker Gait Goal Standby Assistance,Front Wheel Walker Gait Distance 150 Other Goals - up/down 5 stairs with left rail ascending SBA - up/down one platform step for access to tall bed Frequency of Treatment Frequency Of Treatment Twice a Day Treatment Plan Physical Therapy Treatment Plan Bed Mobility Training,Transfer Training,Gait Training, Therapeutic Exercise,Balance Retraining,Post Op Education, Discharge Planning,Hot or Cold Pack,Neuromuscular Re-ed, Coordination Retraining,Manual Therapy Other Recommendations and Next Treatment Review gait pattern and safe Focus mobility with eccentric control when sitting and during bed mobility Recommendations To Nursing Amount of Assist Needed 1 Person Assist Discharge Recommendations PT Discharge Recommendations Home with Assistance, Outpatient PT
[2019-10-20 16:00] VITALS: BP 138/66; PULSE 71; RESP 17; TEMP 36.6; O2SAT 99
[2019-10-20 20:10] VITALS: BP 121/65; PULSE 73; RESP 16; TEMP 36.6; O2SAT 96
[2019-10-21 00:20] VITALS: BP 115/59; PULSE 80; RESP 18; TEMP 36.6; O2SAT 96
[2019-10-21] MEDS: IBUPROFEN 400 MG TABLET PO ×4 (01:33→13:07)
[2019-10-21 04:26] VITALS: BP 131/64; PULSE 79; RESP 18; TEMP 36.3; O2SAT 98
[2019-10-21] MEDS: PANTOPRAZOLE 40 MG TABLET PO (06:11)
[2019-10-21 08:00] VITALS: BP 123/68; PULSE 73; RESP 16; TEMP 36.9; O2SAT 98
--- NOTE | 2019-10-21 09:40 | PM.DS.1 ---
History of Present Illness History of Present Illness Date Patient Seen: 10/21/19 Time Patient Seen: 09:41 Chief complaint: [id number] Right Total Hip Arthroplasty Narrative: The patient has had progressively worsening right hip pain with radiographic changes consistent with arthritis. Non-operative management has failed and the patient has requested total hip replacement. The risks, benefits and alternatives to surgery were discussed with the patient prior to proceeding. Risks discussed included, but were not limited to, failure to relieve pain, leg length discrepancy, dislocation, stiffness, infection, nerve damage, deep venous thrombosis, pulmonary embolism, stroke, coma, heart attack, permanent paralysis and , as well as the potential need for eventual revision of the prosthetic. Discharge Providers Provider Date of admission: 10/19/19 05:52 Discharge Date: 10/21/19 Primary care physician: Sangeeta Palma Consults: 10/19/19 06:00 Consult to Anesthesiology Routine Comment: Consulting Provider: Anesthesiologist Reason for consultation: Regional block for post operative pain control 10/19/19 08:42 Consult to Respiratory Therapy Evaluate & Treat Comment: h/o MAR, s/p GEOVANNY Physician Instructions: Evaluate and treat 10/19/19 11:26 Consult to Discharge Planning Routine Comment: Consult to Physical Therapy Evaluate & Treat Comment: Physician Instructions: post op GEOVANNY protocol Consult to Respiratory Therapy Evaluate & Treat Comment: Physician Instructions: Evaluate and treat Discharge provider: Josie Pina PA-C Summary Hospital Course Discharge Diagnosis: s/p right total hip arthroplasty Hospital Course: Cm was admitted for a right total hip arthroplasty posterior approach with Dr. Bassett. Hospital course unremarkable. On postop day 2. Patient was ready to discharge home. She is taking tramadol, Tylenol, and ibuprofen for pain control. She is eating and voiding without difficulty or assistance. She worked with physical therapy throughout her stay. She has physical therapy set up for home. All drains were removed prior to discharge. Status at Discharge Functional status at discharge: uses cane/walker Exam Vital Signs (past 8 hours): - 10/21/19 04:26 10/21/19 08:00 Temperature 97.4 F L 98.4 F Pulse Rate 79 73 Respiratory Rate 18 16 Blood Pressure 131/64 123/68 Pulse Oximetry 98 98 Oxygen Delivery Method Room Air Oxygen Flow Rate 0 Narrative Exam Narrative: Patient is sitting in bedside chair in no acute distress. She is alert and oriented x3. Calves are soft, compressible, nontender bilaterally. Pulses are symmetrical. She is able to actively dorsiflex and plantar flex. A dressing on the right hip is CDI. Expected postoperative swelling. She states she was slow to do stairs yesterday. She would like to go home today. Objective Labs Result Diagrams: 10/20/19 05:27 Discharge Plan Discharge Plan Patient Disposition: Home Discharge orders & Medications Prescriptions: New aspirin 81 mg tablet,delayed release (DR/EC) 81 mg PO BID Qty: 60 RF: 0 acetaminophen [Tylenol Extra Strength] 500 mg tablet 500 mg PO Q4H PRN (Reason: pain (scale score 1-3)) Qty: 30 RF: 0 ibuprofen 400 mg Tablet 400 mg PO Q4HR Qty: 60 RF: 0 tramadol 50 mg tablet 50 mg PO Q6H PRN (Reason: pain) Qty: 30 RF: 0 Continued cyanocobalamin (vitamin B-12) [Vitamin B-12] 1,000 mcg Tablet 1,000 mcg PO DAILY RF: 0 ferrous sulfate [iron] 325 mg (65 mg iron) Tablet 325 mg PO DAILY RF: 0 esomeprazole magnesium [Nexium] 40 mg Capsule,Delayed Release(Dr/Ec) 40 mg PO DAILY RF: 0 naproxen sodium [Aleve] 220 mg Capsule 440 mg PO QAM RF: 0 PNV cmb#95-ferrous fumarate-FA [ Multivitamins] 28 mg iron- 800 mcg Tablet 1 tab PO DAILY RF: 0 Follow up/Referrals: Sangeeta Palma [Primary Care Provider] - Radhika Bassett MD [Physician] - Discharge Health Status Multidrug resistant organism: No MDRO Diet/Activity/Treatments Diet: Regular Activity: follow posterior total hip precautions. weight bearing as tolerated Cold/Heat Therapy: continue cold/heat therapy Skin/Wound/Dressing Care Report to your healthcare provider any signs of infection, such as:: chills, fever, increased pain, unusual drainage and unusual redness Dressing: keep dressing dry, may shower. do not soak (e.g. bath). if saturated, contact office for dressing change. Visit Report/Discharge Packet Instructions: DI for Hip Replacement, DI for Prescription Opioid Use Stand Alone Forms: Surgery Discharge Visit Report Forms: Patient Portal/API, Stroke Signs & Symptoms Discharge Data Primary Care Provider: Sangeeta Palma Attending Provider: Radhika Bassett Admit Date/Time: 10/19/19 05:52 Quality VTE Deep Vein Thrombosis/Pulmonary Embolism Present on Admission: No
[2019-10-21] MEDS: CYANOCOBALAMIN (VITAMIN B-12) 500 MCG TABLET 1000 MCG PO (10:14)
[2019-10-21] MEDS: DOCUSATE 100 MG CAPSULE PO (10:14)
[2019-10-21] MEDS: ASPIRIN EC 81 MG TABLET PO (10:15)
[2019-10-21] MEDS: ACETAMINOPHEN 325 MG TABLET 650 MG PO (10:15)
[2019-10-21] MEDS: FERROUS SULFATE 325 MG TABLET PO (10:15)
[2019-10-21] MEDS: SODIUM CHLORIDE 0.9% FLUSH 10 ML IV (10:16)
[2019-10-21] MEDS: PRENATAL VIT,CALC/IRON/FOLIC 1 TABLET 1 TAB PO (10:16)
[2019-10-21] MEDS: TRAMADOL 50 MG TABLET PO (10:20)
--- NOTE | 2019-10-21 13:21 | PT.IPTN ---
Current Diagnoses Unilateral primary osteoarthritis, right hip (10/19/19) Surgery Performed Operation Date: 10/19/19 07:45 Actual Procedures p Total Hip Arthroplasty(Right) - Radhika Bassett MD Physical Therapy Treatment Note M2 PT-IP Current Condition Start: 10/19/19 12:04 Freq: NEEDED Status: Active Protocol: Document 10/21/19 11:49 NFW (Rec: 10/21/19 13:21 NFW [id number]) Physical Therapy Current Condition Precautions Posterior Hip Precautions No Hip Flexion > 90 degrees,No Hip Internal Rotation,No Hip Adduction Weight Bearing Status Weight Bearing Status Weight Bear as Tolerated M3 PT-IP Subjective Start: 10/19/19 12:04 Freq: NEEDED Status: Active Protocol: Document 10/21/19 11:49 NFW (Rec: 10/21/19 13:21 NFW [email or web address]) Subjective Physical Therapy Visit Type Type Treatment Note Visit Start Time 11:20 Visit Stop Time 11:49 Total Visit Minutes 29 Number of BROILER MANAGER Visits 0 Physical Therapy Visit Comments Patient Comments Pt feeling good and ready to go home. Would like to try stairs again. Patient Goals Pt hopes to be able to return to [place] next summer with decreased hip pain. In the short term, she wishes to return home with family assist . M4 PT-IP Mobility and Gait Start: 10/19/19 12:04 Freq: NEEDED Status: Active Protocol: Document 10/21/19 11:49 NFW (Rec: 10/21/19 13:21 NFW [email or web address]) PT-Transfer Assessment Sit to and From Stand Sit to and from Stand Standby Assistance,1 Person Assistance,Use of Upper Extremities Equipment Transfer Assistive Device Gait Belt,Front Wheeled Walker Orthotic/Prosthetic Devices or Brace: No Transfers Transfer Destination Chair Transfer Ability Level of Assist Standby Assistance,1 Person Assistance,Use of Upper Extremities Comments Mobility Comments Minimal cuing needed with transitional activities. Feels comfortable with her abilities to get in and out of bed or chair. Gait Assessment Gait Gait Assistance Required: Standby Assistance,1 Person Assist Distance (Feet) 250 Able to Maintain Weight Bearing Status Yes During Gait Assistive Devices Assistive Device Gait Belt,Front Wheeled Walker Orthotic/Prosthetic Devices or Brace: No Gait Deviations General Gait Pattern Antalgic,Decreased Stride Length,Decreased Feet Clearance,Flexed Trunk,Step-to Gait Factors Limiting Gait Function Factors Limiting Gait Function Decreased Strength,Pain,Poor Balance Comments Gait Comments Decrease dependency on walker in ambulation. Occ. cuing for proper upright posture and for equalizing strides. Stair Climbing Assessment Evaluation Level of Assist On Stairs Standby Assistance,1 Person Assistance Devices Stair Climbing Assistive Devices Left Railing Technique/Endurance Stair Climbing Direction Ascend and Descend Stair Climbing Technique Step to Step Number of Steps Climbed 3 Stair Climbing Set # Repetitions (reps) 1 Comments Stair Climbing Comments Min. cuing needed with stair climbing. Uncomfortable in Rt hip with descension. PT-Balance Assessment Sitting Balance and Reactions Static Sitting Balance Ability Normal Dynamic Sitting Balance Ability Normal Standing Balance and Reactions Static Standing Balance Ability Good Dynamic Standing Balance Ability Good Device Used FWW M5 PT-IP Objective Assessments Start: 10/19/19 12:04 Freq: NEEDED Status: Active Protocol: Document 10/19/19 14:50 AW (Rec: 10/19/19 15:14 AW [id number]) Orientation Orientation/Cognition Level of Alertness Alert Orientation Name,Day of Week,Place, Situation Language Function Ability No Deficits Noted Safety Awareness Understands Safety Issues Memory Description No Deficits Noted Gross Range of Motion Upper Extremity ROM Assessment Within Functional Limits Lower Extremity ROM Assessment Right Impaired Strength Upper Extremity Strength Assessment Within Functional Limits Lower Extremity Strength Assessment Right Impaired Comments Strength Comments L LE grossly 4+/5 Coordination Assessment Gross Coordination Gross Coordination WNL Sensation Assessment Sensation Gross Sensation WNL Comments Sensation Comments Chronically numb left great toe Muscle Tone Muscle Tone WNL Yes M6 PT-IP Treatment Start: 10/19/19 12:04 Freq: NEEDED Status: Active Protocol: Document 10/21/19 11:49 NFW (Rec: 10/21/19 13:21 NFW [email or web address]) Physical Therapy Treatment Other Treatments Other Treatment Performed Answered multiple questions by patient. Receptive to all information provided. M7 PT-IP Assessment and Plan Start: 10/19/19 12:04 Freq: NEEDED Status: Active Protocol: Document 10/21/19 11:49 NFW (Rec: 10/21/19 13:21 NFW [email or web address]) PT Summary Assessment and Plan Potential Status of Condition at Evaluation Evolving Summary Impairments Pain,ROM,Strength,Balance, Coordination,Gait,Activity Tolerance Progress Towards Goals Progressing Toward Goals,Safe For Discharge Assessment Summary Pt. is safe for discharge. Performed bed mobility, ambulation and stairclimbing with SBA. Improved form and confidence in ambulation. Ready to start with OPPT. Goals Bed Mobility Goal Standby Assistance Transfer Goal Standby Assistance,Front Wheeled Walker Gait Goal Standby Assistance,Front Wheel Walker Gait Distance 150 Other Goals - up/down 5 stairs with left rail ascending SBA - up/down one platform step for access to tall bed Frequency of Treatment Frequency Of Treatment Discharge Discharge Recommendations PT Discharge Recommendations Home with Assistance, Outpatient PT
--- NOTE | 2019-10-21 13:53 | PC.NURSE ---
Discharge: IV dc'd intact. Given scripts for Tramadol and Ibuprofen. Reviewed home med list and all discharge instructions thoroughly with patient. Encouraged to call office Wednesday to check on follow-up appointment times (or to schedule if not already done). Patient verbalized understanding of all d/c info and stated no further questions or concerns. All personal belongings collected and sent with patient. Wheeled out to private vehicle by nursing staff.
--- NOTE | 2019-10-21 14:43 | CM.DPC ---
DCP Discharge Home Per Ortho PA, pt medically stable to d/c home today with no identified barriers to discharge. Per PT, recommending safe d/c home with family assist and outpt PT. Per RN, no concerns at this time and pt assisted out to family vehicle without needs. Plan: Patient to d/c home today via family POV and outpt PT and no SW needs at this time. ESTHER Morejon
== END 2019-10-21 13:55 | disposition home or self-care (01) ==
PROVIDERS: Admitting Provider Orthopaedic Surgery; PCP Nurse Practitioner Family; Visit Provider Orthopaedic Surgery
PROC: 0SR90JZ Replacement of Right Hip Joint with Synthetic Substitute, Open Approach (ICD-10-PCS; CPT 27130; principal; 2019-10-19 07:45)
DX: M16.11 Unilateral primary osteoarthritis, right hip (principal); E66.9 Obesity, unspecified; Z68.36 Body mass index [BMI] 36.0-36.9, adult
CPT/HCPCS: 27130; 36415; 72170; 73502; 85014; 85018; 97116; 97161; 97530; C1776; G0378; C9290; G0379; J0171; J0690; J1100; J1170; J2250; J2405; J2704; J3010; J3410